=== PATIENT | male | born 1970 | race Caucasian/White ===

== ENCOUNTER 2017-04-12 10:25 | Emergency (ER) | payer OTHER ==
[2017-04-12 11:45] LABS: % IMMATURE GRANULYOCYTES 0.3 % (0.0-1.1); ABSOLUTE IMMATURE GRANULOCYTES 0.02 10^3/uL (0.00-0.10); ADD DIFF? NO; ADD MORPH? NO; ADD SCAN? NO; ATYPICAL LYMPHOCYTE FLAG 10 (0-99); FRAGMENT RBC FLAG 0 (0-99); HEMATOCRIT 43.3 % (40.0-51.0); HEMOGLOBIN 14.8 g/dL (13.7-17.5); LEFT SHIFT FLG 0 (0-99); LIPEMIA HEMOLYSIS FLAG 90 (0-99); MEAN CELL HEMOGLOBIN CONCENTR. 34.2 g/dL (32.4-36.7); MEAN CELL VOLUME 93.5 fL (81.5-99.8); MEAN PLATELET VOLUME 8.9 fL (8.7-11.7); PLATELET CLUMPS FLAG 0 (0-99); PLATELET COUNT 322 10^3/uL (150-400); RED BLOOD CELL COUNT 4.63 10^6/uL (4.40-6.38); RED CELL DISTRIBUTION WIDTH 13.6 % (11.5-15.2)
--- NOTE | 2017-04-12 11:56 | EDPHY ---
Mental Health General Previous Psychiatric History: previous inpatient psychiatric admission, bipolar , substance abuse, anxiety Smoking Status: Current every day smoker Time Patient Placed on Detainer: 11:55 Time Medically Cleared for Psychiatric Evaluation: 12:47 Time of Transfer of Care: 19:[address] To [address]:: Yimi Narrative: The patient was evaluated and managed by the physician's assistant professor of marine biology. My cosignature indicates that I reviewed the chart and I agree with the findings and plan of care as documented. I am the secondary supervising physician. ( Farnaz Jordan) CHIEF COMPLAINT: suicidal ideations HISTORY OF PRESENT ILLNESS: 46-year-old male with past medical history of anxiety and schizoaffective disorder presents the emergency department voluntarily for increasing suicidal thoughts over the last 2-3 days. Patient reports he has, with a plan to jump off the 3rd story of his building head 1st. He has had previous suicidal thoughts, no previous suicidal attempts. Patient was recently hospitalized a month ago in [facility] and started on Zyprexa. He did not like the way this made him feel and is he stopped taking this 2 weeks ago when he had increasing auditory and visual hallucinations and suicidal thoughts. Patient denies homicidal ideations. He denies any physical complaints. REVIEW OF SYSTEMS: A comprehensive 10 point review of systems is otherwise negative aside from elements mentioned in the history of present illness. Physical Exam Gen: Alert and Oriented, NAD HEENT: PERRL, moist mucous membranes NECK: no meningismus CV: regular rate and regular rhythm PULM: CTAB, no wheezes ABDOMEN: soft, non tender to palpation, BS present NEURO: Moves all extremities, no facial asymmetry, follows commands EXTREMITIES: normal appearing SKIN: no rash or break in skin on exposed skin PSYCH: Flat affect, reports suicidal ideations, auditory and visual hallucinations, denies homicidal ideations. (Karina Moon) Medical Decision Makin-Mental health provider at bedside. Report passed on to Dr. Hoffmann at the end of my shift. (Karina Moon) 8p.m.-this patient has been seen by mental health and felt appropriate for transfer to an ATU. I agree with this assessment. (Sahara Hoffmann) - Objective Vital Signs: Initial Vital Signs Temperature (C) 37.1 C 04/12/17 10:28 Heart Rate 106 H 04/12/17 10:28 Respiratory Rate 19 09/29/17 10:28 Blood Pressure 174/116 H 04/12/17 10:28 O2 Sat (%) 98 04/12/17 10:28 O2 Delivery Mode Room Air O2 (L/minute) 96 Allergies/Adverse Reactions: No Known Allergies Allergy (Verified 09/27/14 11:41) Home Medications: Medication Instructions Recorded Levomefolate/Algal Oil 1 each PO DAILY 04/15/16 [Deplin-Algal Oil 7.5 mg Cap] Atorvastatin Calcium [Lipitor 10 10 mg PO HS #30 tab 04/27/16 mg (*)] Difluprednate [Durezol] 1 drop RTEYE QID #1 drops 04/27/16 Disulfiram [Antabuse 250 MG (*)] 250 mg PO DAILY #30 tab 04/27/16 Hydrochlorothiazide [HCTZ (*)] 25 mg PO DAILY #30 tab 04/27/16 Naltrexone HCl [Revia] 50 mg PO DAILY #30 tab 04/27/16 QUEtiapine FUMARATE [Seroquel 50 25 mg PO HS #30 tab 04/27/16 mg (*)] Thiamine HCl [Vitamin B-1] 100 mg PO DAILY #30 tab 04/27/16 Laboratory Results: Laboratory Results 04/12/17 11:15 04/12/17 11:15 04/12/17 04/12/17 04/12/17 11:28 11:15 11:15 WBC 6.49 10^3/uL 10^3/uL (3.80-9.50) RBC 4.63 10^6/uL 10^6/uL (4.40-6.38) Hgb 14.8 g/dL g/dL (13.7-17.5) Hct 43.3 % % (40.0-51.0) MCV 93.5 fL fL (81.5-99.8) MCH 32.0 pg pg (27.9-34.1) MCHC 34.2 g/dL g/dL (32.4-36.7) RDW 13.6 % % (11.5-15.2) Plt Count 322 10^3/uL 10^3/uL (150-400) MPV 8.9 fL fL (8.7-11.7) Neut % (Auto) 66.7 % % (39.3-74.2) Lymph % (Auto) 26.2 % % (15.0-45.0) Jack % (Auto) 5.5 % % (4.5-13.0) Eos % (Auto) 0.5 % L % (0.6-7.6) Baso % (Auto) 0.8 % % (0.3-1.7) Nucleat RBC Rel Count 0.0 % % (0.0-0.2) Absolute Neuts (auto) 4.33 10^3/uL 10^3/uL (1.70-6.50) Absolute Lymphs (auto) 1.70 10^3/uL 10^3/uL (1.00-3.00) Absolute Monos (auto) 0.36 10^3/uL 10^3/uL (0.30-0.80) Absolute Eos (auto) 0.03 10^3/uL 10^3/uL (0.03-0.40) Absolute Basos (auto) 0.05 10^3/uL 10^3/uL (0.02-0.10) Absolute Nucleated RBC 0.00 10^3/uL 10^3/uL (0-0.01) Immature Gran % 0.3 % % (0.0-1.1) Immature Gran # 0.02 10^3/uL 10^3/uL (0.00-0.10) Sodium 140 mEq/L mEq/L (134-144) Potassium 4.1 mEq/L mEq/L (3.5-5.2) Chloride 100 mEq/L mEq/L (97-110) Carbon Dioxide 25 mEq/l mEq/l (22-31) Anion Gap 15 mEq/L mEq/L (8-16) BUN 15 mg/dL mg/dL (7-23) Creatinine 1.0 mg/dL mg/dL (0.7-1.3) Estimated GFR > 60 Glucose 117 mg/dL H mg/dL (70-100) Calcium 10.0 mg/dL mg/dL (8.5-10.4) Urine Opiates Screen NEGATIVE (NEGATIVE) Urine Barbiturates NEGATIVE (NEGATIVE) Ur Phencyclidine Scrn NEGATIVE (NEGATIVE) Ur Amphetamine Screen NEGATIVE (NEGATIVE) U Benzodiazepines Scrn NEGATIVE (NEGATIVE) Urine Cocaine Screen NEGATIVE (NEGATIVE) U Marijuana (THC) Screen NEGATIVE (NEGATIVE) Ethyl Alcohol < 10 mg/dL mg/dL (0-10) Departure - Departure Disposition: Other Psych, Not [place] Clinical Impression: Suicidal ideation Condition: Fair Referrals: WINIFRED JO [Primary Care Provider] - As per Instructions
[2017-04-12 12:00] LABS: ANION GAP 15 mEq/L (8-16); CARBON DIOXIDE 25 mEq/l (22-31); CHLORIDE 100 mEq/L (97-110); ETHANOL SERUM < 10 mg/dL (0-10); GLOMERULAR FILTRATION RATE > 60; GLUCOSE 117 mg/dL (70-100); POTASSIUM 4.1 mEq/L (3.5-5.2); SODIUM 140 mEq/L (134-144)
[2017-04-12 17:05] VITALS: TEMP 97.9
[2017-04-12 22:40] VITALS: PULSE 86; O2SAT 97
[2017-04-12 23:58] VITALS: BP 116/97; RESP 18
== END 2017-04-13 00:05 ==
DX: R45.851 Suicidal ideations (principal); F17.200 Nicotine dependence, unspecified, uncomplicated
CPT/HCPCS: 80305; G0480

== ENCOUNTER 2017-04-24 14:15 | Emergency (ER) | payer OTHER ==
--- NOTE | 2017-04-24 15:14 | EDPHY ---
H & P Time Seen by Provider: 04/24/17 14:56 HPI/ROS: CHIEF COMPLAINT: Suicidal ideation HISTORY OF PRESENT ILLNESS: The patient is a 46-year-old male with a history of bipolar disorder who presents emergency department suicidal ideation. He states his symptoms have worsened over the past 2-3 months. She recently had increased stressors of the DUI him being laid off work. He thinks about jumping out of a 3rd story window. The patient denies any ingestion. No previous episodes of the attempted suicide. He drinks alcohol intermittently. Denies drug use. REVIEW OF SYSTEMS: My complete review of systems is negative except as mentioned in the HPI. Past Medical/Surgical History: Includes anxiety, bipolar disorder, hypertension Past surgical history: Broken jaw surgery Social history: The patient does not smoke. Denies drug use. He drinks alcohol occasionally. Smoking Status: Current every day smoker Physical Exam: Vitals noted. 37.7 GENERAL: Well-appearing, in no acute distress, alert. HEENT: Eyes normal to inspection, normal pharynx, no signs of dehydration. NECK: No thyromegaly, no lymphadenopathy, supple. RESPIRATORY: Clear to auscultation bilaterally, no rales, rhonchi or wheezing. CVS: Regular rate and rhythm, no rubs, murmurs, or gallops. ABDOMEN: Soft, nontender, nondistended, no organomegaly. BACK: Normal to inspection, no CVA tenderness. SKIN: Normal color, no rash, warm, dry. No pallor. EXTREMITIES: No pedal edema, no calf tenderness, no Homans sign or cords, no joint swelling. no injury. NEURO/PSYCH: Alert and oriented x3, flat affect, normal motor sensory exam. Constitutional: Initial Vital Signs Temperature (C) 37.7 C 04/24/17 14:25 Heart Rate 81 04/24/17 14:25 Respiratory Rate 17 04/24/17 14:25 Blood Pressure 118/100 H 04/24/17 14:25 O2 Sat (%) 96 04/24/17 14:25 O2 Delivery Mode Room Air Allergies/Adverse Reactions: No Known Allergies Allergy (Verified 04/24/17 14:24) Home Medications: Medication Instructions Recorded HCTZ (*) 04/24/17 Hydrochlorothiazide [HCTZ (*)] 25 mg PO DAILY #5 tab 04/24/17 Latuda 04/24/17 Medical Decision Making ED Course/Re-evaluation: IN THE EMERGENCY DEPARTMENT I DISCUSSED POSSIBLE ETIOLOGIES WITH THE PATIENT. I ANSWERED ALL HIS QUESTIONS. I PLACED THE PATIENT ON A MENTAL HEALTH HOLD. I informed the patient of the hold and answered his questions. An IV was placed. Laboratory studies were obtained. Reviewed the patient's laboratory studies. CBC and chemistry unremarkable. His tox screen is negative. His aspirin and Tylenol levels are negative. 2020: I discussed the case with Psychiatric Services. They recommend admission for the patient. 2135: EMTALA completed. The patient has placement to a CSU. The psychiatric care facility requested that the patient be given 5 day supply of his hydrochlorothiazide. This was written. Differential Diagnosis: My differential includes but is not limited to suicidal ideation, depression, bipolar disorder, anxiety, electrolyte abnormality, sugar abnormality, underlying infection, agitated earlier - Data Points Laboratory Results: Laboratory Results 04/24/17 15:00 04/24/17 15:00 04/24/17 04/24/17 04/24/17 15:00 15:00 15:00 WBC 8.49 10^3/uL 10^3/uL (3.80-9.50) RBC 5.16 10^6/uL 10^6/uL (4.40-6.38) Hgb 16.5 g/dL g/dL (13.7-17.5) Hct 46.4 % % (40.0-51.0) MCV 89.9 fL fL (81.5-99.8) MCH 32.0 pg pg (27.9-34.1) MCHC 35.6 g/dL g/dL (32.4-36.7) RDW 13.0 % % (11.5-15.2) Plt Count 398 10^3/uL 10^3/uL (150-400) MPV 8.7 fL fL (8.7-11.7) Neut % (Auto) 63.7 % % (39.3-74.2) Lymph % (Auto) 27.7 % % (15.0-45.0) [place] % (Auto) 7.4 % % (4.5-13.0) Eos % (Auto) 0.4 % L % (0.6-7.6) Baso % (Auto) 0.6 % % (0.3-1.7) Nucleat RBC Rel Count 0.0 % % (0.0-0.2) Absolute Neuts (auto) 5.41 10^3/uL 10^3/uL (1.70-6.50) Absolute Lymphs (auto) 2.35 10^3/uL 10^3/uL (1.00-3.00) Absolute Monos (auto) 0.63 10^3/uL 10^3/uL (0.30-0.80) Absolute Eos (auto) 0.03 10^3/uL 10^3/uL (0.03-0.40) Absolute Basos (auto) 0.05 10^3/uL 10^3/uL (0.02-0.10) Absolute Nucleated RBC 0.00 10^3/uL 10^3/uL (0-0.01) Immature Gran % 0.2 % % (0.0-1.1) Immature Gran # 0.02 10^3/uL 10^3/uL (0.00-0.10) Sodium 137 mEq/L mEq/L (134-144) Potassium 4.3 mEq/L mEq/L (3.5-5.2) Chloride 99 mEq/L mEq/L (97-110) Carbon Dioxide 23 mEq/l mEq/l (22-31) Anion Gap 15 mEq/L mEq/L (8-16) BUN 15 mg/dL mg/dL (7-23) Creatinine 0.9 mg/dL mg/dL (0.7-1.3) Estimated GFR > 60 Glucose 116 mg/dL H mg/dL (70-100) Calcium 10.9 mg/dL H mg/dL (8.5-10.4) Phosphorus 3.9 mg/dL mg/dL (2.5-4.5) Salicylates < 1.0 mg/dL L mg/dL (2.0-20.0) Urine Opiates Screen NEGATIVE (NEGATIVE) Acetaminophen < 10 mcg/mL L mcg/mL (10-30) Urine Barbiturates NEGATIVE (NEGATIVE) Ur Phencyclidine Scrn NEGATIVE (NEGATIVE) Ur Amphetamine Screen NEGATIVE (NEGATIVE) U Benzodiazepines Scrn NEGATIVE (NEGATIVE) Urine Cocaine Screen NEGATIVE (NEGATIVE) U Marijuana (THC) Screen NEGATIVE (NEGATIVE) Ethyl Alcohol < 10 mg/dL mg/dL (0-10) Departure - Departure Disposition: Other Psych, Not [place] Clinical Impression: Suicidal ideation Condition: Good Referrals: NONE *PRIMARY CARE P,. [Primary Care Provider] - As per Instructions Prescriptions: Hydrochlorothiazide [HCTZ (*)] 25 mg PO DAILY #5 tab
[2017-04-24 15:37] LABS: % IMMATURE GRANULYOCYTES 0.2 % (0.0-1.1); ABSOLUTE IMMATURE GRANULOCYTES 0.02 10^3/uL (0.00-0.10); ADD DIFF? NO; ADD MORPH? NO; ADD SCAN? NO; ATYPICAL LYMPHOCYTE FLAG 10 (0-99); FRAGMENT RBC FLAG 0 (0-99); HEMATOCRIT 46.4 % (40.0-51.0); HEMOGLOBIN 16.5 g/dL (13.7-17.5); LEFT SHIFT FLG 0 (0-99); LIPEMIA HEMOLYSIS FLAG 90 (0-99); MEAN CELL HEMOGLOBIN CONCENTR. 35.6 g/dL (32.4-36.7); MEAN CELL VOLUME 89.9 fL (81.5-99.8); MEAN PLATELET VOLUME 8.7 fL (8.7-11.7); PLATELET CLUMPS FLAG 0 (0-99); PLATELET COUNT 398 10^3/uL (150-400); RED BLOOD CELL COUNT 5.16 10^6/uL (4.40-6.38)
[2017-04-24 15:41] LABS: ANION GAP 15 mEq/L (8-16); CALCIUM 10.9 mg/dL (8.5-10.4); CARBON DIOXIDE 23 mEq/l (22-31); CHLORIDE 99 mEq/L (97-110); CREATININE 0.9 mg/dL (0.7-1.3); ETHANOL SERUM < 10 mg/dL (0-10); GLOMERULAR FILTRATION RATE > 60; GLUCOSE 116 mg/dL (70-100); POTASSIUM 4.3 mEq/L (3.5-5.2); SALICYLATE < 1.0 mg/dL (2.0-20.0); SODIUM 137 mEq/L (134-144)
[2017-04-24 22:00] VITALS: BP 115/71; PULSE 78; RESP 18; TEMP 98.1; O2SAT 98
== END 2017-04-24 22:07 ==
LOC: EEVIPCON 14:15
DX: R45.851 Suicidal ideations (principal); I10 Essential (primary) hypertension; F17.200 Nicotine dependence, unspecified, uncomplicated
CPT/HCPCS: 80305; G0480

== ENCOUNTER 2018-09-13 09:13 | Emergency (ER) | payer OTHER | END 2018-09-13 10:39 | disposition home or self-care (01) ==